=== PATIENT | female | born 1970 | race Caucasian/White ===

== ENCOUNTER 2016-05-27 18:27 | Emergency (ER) | payer OTHER, BC ==
[~2016-05-27] VITALS: Ht 160 cm; Wt 95.2 kg
[~2016-05-27 18:27] MED LIST: BACT800T5 PO; LEVA500T33 PO; Z.0.NO CURRENT MEDS
[2016-05-27 18:35] VITALS: BP 118/80; PULSE 105; RESP 16; TEMP 98.6; O2SAT 98
--- NOTE | 2016-05-27 19:32 | RADHPO ---
EXAM DATE/TIME: 05/27/2016 19:15 [place] COMPARISON: No previous studies available for comparison. INDICATIONS : Right shoulder pain post fall. MEDICAL HISTORY : None. SURGICAL HISTORY : None. ENCOUNTER: Initial ACUITY: 4 - 6 days PAIN SCORE: 8/10 LOCATION: Right upper extremity FINDINGS: Multiple view examination of the right shoulder demonstrates no evidence of fracture or dislocation. The glenohumeral and acromioclavicular joints are maintained. There is normal range of motion betwe en internal and external rotation. Bony mineralization is normal. CONCLUSION: No acute disease. Tomasz Holder MD on May 27, 2016 at 19:30 Board Certified Radiologist. This report was verified electronically.
--- NOTE | 2016-05-27 19:38 | PD ---
HPI Chief Complaint: Injury Time Seen by Provider: 19:38 Travel History International Travel<30 days: No Contact w/Intl Traveler<30days: No Traveled to known affect area: No History of Present Illness HPI 45-year-old female presents to the ED for evaluation of right shoulder pain. Patient states that she lost her balance and fell out of her car onto the right shoulder 2 days ago. She denies hitting her head or loss of consciousness. She states that since then the shoulders been painful. 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 He states that when the arm is at rest it is a very painful however with certain movements she feels a shooting pain from the neck down the arm. She denies headaches, dizziness. She denies weakness of the extremity. She denies previous injury to that area. She treated at home with [place] with mild improvement of symptoms. PFSH Past Medical History Medical History: Denies Significant Hx Diminished Hearing: No Influenza Vaccination: Yes ?: Not LMP: 05/02/16 Past Surgical History Genitourinary Surgery: Yes (BLADDER) Social History Alcohol Use: Yes (FEW DRINKS PER WEEK) Tobacco Use: No Substance Use: No Allergies-Medications (Allergen,Severity, Reaction): Coded Allergies: Penicillin (Verified Allergy, Severe, 05/27/16) Reported Meds & Prescriptions Reported Meds & Active Scripts Active Ibuprofen 800 Mg Tab 800 Mg PO Q8H Flexeril (Cyclobenzaprine HCl) 10 Mg Tab 10 Mg PO TID Bactrim DS (Sulfamethoxazole-Trimethoprim) 800-160 Mg Tab 1 Tab PO BID Reported Levaquin (Levofloxacin) 500 Mg Tab 500 Mg PO DAILY No Current Meds (Miscellaneous Medication) Misc Review of Systems Except as stated in HPI: all other systems reviewed are Neg Physical Exam Narrative GENERAL: Well-nourished, well-developed white female in no acute distress. SKIN: Focused skin assessment warm/dry. HEAD: Normocephalic. EYES: No scleral icterus. No injection or drainage. NECK: Supple, trachea midline. No JVD or lymphadenopathy. No midline tenderness to palpation. Patient retains full, active, ROM of the neck. CARDIOVASCULAR: Regular rate and rhythm without murmurs, gallops, or rubs. RESPIRATORY: Breath sounds equal bilaterally. No accessory muscle use. GASTROINTESTINAL: Abdomen soft, non-tender, nondistended. MUSCULOSKELETAL: No cyanosis, or edema. Focused right upper extremity exam: 2+ radial pulses. TTP of the right trapezius , acromioclavicular joint, proximal humerus. Strong telephone order clerk room service strength. Patient is able to flex and extend the fingers, wrist and elbow. Patient is unable to actively abduct the shoulder beyond 90. Sensation intact to light touch distally. Cap refill less than 2 seconds. NEUROLOGICAL: Awake and alert. Cranial nerves II through XII intact. Motor and sensory grossly within normal limits. Five out of 5 muscle strength in all muscle groups. Normal speech. BACK: Nontender without obvious deformity. No CVA tenderness. Data Data Last Documented VS Vital Signs Date Time Temp Pulse Resp B/P Pulse Ox O2 Delivery O2 Flow Rate FiO2 05/27/16 18:35 98.6 105 16 118/80 98 Orders Shoulder, Complete (>2vws) (05/27/16 18:53) Ice/Cold Pack (05/27/16 18:53) Ketorolac Inj (Toradol Inj) (05/27/16 20:00) MDM Medical Decision Making Medical Screen Exam Complete: Yes Emergency Medical Condition: Yes Differential Diagnosis Fracture versus dislocation versus rotator cuff injury versus musculoskeletal pain versus other Narrative Course 45-year-old female presents to the ED for evaluation of right shoulder pain. Patient states that she lost her balance and fell out of her car onto the right shoulder 2 days ago. She denies hitting her head or loss of consciousness. She states that since then the shoulders been painful. 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 She states that when the arm is at rest it isnt very painful however with certain movements she feels a shooting pain from the neck down the arm. She denies headaches, dizziness. She denies weakness of the extremity. She denies previous injury to that area. Vitals reviewed. Physical exam reveals a nontoxic-appearing white female in no acute distress. No tenderness to palpation of the midline of the neck. Mild tenderness to palpation of the right -sided trapezius muscle, acromioclavicular joint and proximal humerus. Patient is unable to abduct the shoulder greater than 90. Neurovascularly intact. The need for radiological evaluation of the cervical spine and brain was ruled out by a [place] CT results. She is administered IM Toradol. X-rays of the shoulder reveal no acute bony injury per radiology read. I suspect this is either inflammation secondary to her accident or possible rotator cuff injury. Patient was provided a short course of anti-inflammatories and muscle relaxants. She is instructed to rest, ice, take the medications as prescribed, follow up with the orthopedist. She indicated understanding of the instructions and was amenable to plan of care. She stable and discharged home. Diagnosis Primary Impression: Right shoulder pain Qualified Code: M25.511 - Acute pain of right shoulder Referrals: Orthopedist Patient Instructions: General Instructions, Rotator Cuff Injury (ED), Shoulder Pain (ED) Additional Instructions: Rest, ice, elevate the extremity. Apply ice no longer than 10-15 minutes per hour a few times a day. 800 mg ibuprofen every 8 hours as prescribed. BEGIN TOMORROW Flexeril up to 3 times a day as needed for muscle spasm. BEGIN TONIGHT Do not drive with taking Flexeril. Return to normal, gentle activity as tolerated. Follow up with orthopedist next week. Return to the ED for any urgent or emergent medical condition. Med/Other Pt SpecificInfo: Prescription(s) given Scripts Ibuprofen 800 Mg Pyl329 Mg PO Q8H #21 TAB Ref 0 Prov:Tierra Lr MD 05/27/16 Cyclobenzaprine (Flexeril)10 Mg Tab10 Mg PO TID #12 TAB Ref 0 Prov:Tierra Lr MD 05/27/16 Disposition: 01 DISCHARGE HOME Condition: Stable Alanis Talamantes May 27, 2016 19:38
[2016-05-27] MEDS ORDERED: KETOROLAC TROMETHAMINE 60 MG/2 ML (IM) VIAL IM ONE (20:00)
[2016-05-27] MEDS ORDERED: CYCL1TAB29 PO (20:00)
[2016-05-27] MEDS ORDERED: IBUP800T23 PO (20:00)
== END 2016-05-27 20:54 | disposition home or self-care (01) ==
LOC: PHEFT 18:27
DX: M25.511 Pain in right shoulder (principal); V48.4XXA Person boarding or alighting a car injured in noncollision transport accident, initial encounter; W17.89XA Other fall from one level to another, initial encounter; Y93.89 Activity, other specified; Y92.9 Unspecified place or not applicable; Y99.9 Unspecified external cause status
CPT/HCPCS: 73030; 96372; 99283; J1885